=== PATIENT | female | born 1960 | race Asian ===

== ENCOUNTER 2018-07-24 14:55 | Emergency (ER) | payer OTHER ==
[2018-07-24 15:37] VITALS: BP 145/87
--- NOTE | 2018-07-24 15:43 | UC ---
Back Pain HPI - HPI Summary HPI Summary: 58-year-old female presents with left upper back pain that began when she attempted to lift a heavy box of fluids at work this afternoon. Describes pain as constant throbbing. Radiates to her left chest wall and up into her left lower neck. Worsens with touch or movement. Denies chest pain, palpitations, dizziness, shortness of breath, weakness, numbness, or tingling in the extremities, or loss of bowel or bladder control. - History of Current Complaint Chief Complaint: UCBackPain Stated Complaint: BACK INJURY Time Seen by Provider: 07/24/18 15:27 Hx Obtained From: Patient, Family/Bag Printer ?: No Onset/Duration: Sudden Onset, Lasting Hours Timing: Constant Severity Currently: Mild Pain Intensity: 3 Back Pain: Is Discrete @ - Left thoracic back, Radiates To - Left chest wall and left lower neck Character: Throbbing Aggravating Factor(s): Movement, Other - touch Alleviating Factor(s): Nothing Associated Signs And Symptoms: Negative: Weakness, Numbness, Tingling, Bladder Incontinence, Bowel Incontinence - Allergies/Home Medications Allergies/Adverse Reactions: Allergies Allergy/AdvReac Type Severity Reaction Status Date / Time dust mite Allergy Runny Nose Uncoded 07/24/18 15:37 PMH/Surg Hx/FS Hx/Imm Hx Previously Healthy: Yes GI/ History: Gastroesophageal Reflux Other History Of: Hepatitis B - Chronic - Surgical History Surgical History: Yes Surgery Procedure, Year, and Place: CERVICAL BIOPSY - Family History Family History: NON CONTRIBUTORY - Social History Occupation: Employed Full-time Lives: With Family Alcohol Use: None Substance Use Type: None Smoking Status (MU): Never Smoked Tobacco Review of Systems Constitutional: Negative Skin: Negative Respiratory: Negative Cardiovascular: Negative Gastrointestinal: Negative Motor: Negative Neurovascular: Negative Musculoskeletal: Other: - See HPI Is Patient Immunocompromised?: No All Other Systems Reviewed And Are Negative: Yes Physical Exam Triage Information Reviewed: Yes Appearance: Well-Appearing, No Pain Distress, Well-Nourished Vital Signs: Initial Vital Signs Temp 97.9 F 07/24/18 15:27 Pulse 98 07/24/18 15:27 Resp 16 07/24/18 15:27 BP 145/87 07/24/18 15:27 Pulse Ox 100 07/24/18 15:27 Neck: Positive: Supple, Nontender Respiratory: Positive: Lungs clear, Normal breath sounds Cardiovascular: Positive: RRR, No Murmur Abdomen Description: Positive: Nontender, No Organomegaly, Soft Musculoskeletal: Positive: Strength Intact, Other: - Mild soft tissue tenderness left thoracic back with palpation with spasm. No tenderness over the CTLS spinous processes. Limited flexion d/t pain. Neurological: Positive: Alert, Muscle Tone Normal, Other: - Sensation intact distally Skin Exam: Normal Diagnostics - Radiology No standard instances Xray Interpretation: No Acute Changes Radiology Interpretation Completed By: ED Physician, Radiologist - Order Information: THORACIC SPINE 2 VWS Accession Number: [id number] CPT: 36606 HISTORY: pain after lifting heavy box COMPARISONS: None VIEWS: 2, Frontal and lateral views of the thoracic spine. FINDINGS: ALIGNMENT: The alignment is normal. VERTEBRAL BODIES: The vertebral body heights are normal. The interpedicular distances are normal. JOINTS: Unremarkable. INTERVERTEBRAL DISCS : There is mild diffuse loss of intervertebral disc height. SOFT TISSUE: Unremarkable OTHER: The visualized lungs are clear. IMPRESSION: MILD DEGENERATIVE DISC DISEASE Back Pain Course/Dx - Course Course Of Treatment: 58 year old female with sudden onset of left upper thoracic back pain after attempting to lift a box at work. Exam revealed soft tissue tenderness. X-ray showed mild DDD otherwise no acute pathology. Recommend conservative treatment with NSAIDs and muscle relaxant. Warning symtoms reviewed with patient and spouse. Verbalize understanding. Agree with POC. - Differential Dx/Diagnosis Differential Diagnosis/HQI/PQRI: Herniated Disc, Strain Provider Diagnoses: acute back pain, elevated blood pressure reading Discharge - Sign-Out/Discharge Documenting (check all that apply): Patient Departure All imaging exams completed and their final reports reviewed: Yes - Discharge Plan Condition: Stable Disposition: HOME Prescriptions: Cyclobenzaprine (NF) [Cyclobenzaprine 5 MG (NF)] 5 mg PO TID PRN #15 tab PRN Reason: Spasms - Back Naproxen [Naproxen 250 mg tab] 250 mg PO Q12HR #30 tablet Patient Education Materials: Back Pain (ED) Forms: *Work Release Referrals: Fredy Trevino MD [Primary Care Provider] - 7 Days (If no improvement in symptoms.) Additional Instructions: The x-rays performed in the clinic today showed no evidence of a fracture. There was some mild degenerative disc disease but otherwise normal. Your pain is likely from a muscle strain. Take naproxen 1 tablet every 12 hours for the next 5-7 days. He should take this with food to avoid upset stomach. After 5-7 days you may take every 12 hours as needed for pain. I have also prescribed cyclobenzaprine (Flexeril) which is a muscle relaxant. You may take 1 tablet every 8 hours as needed for severe pain or spasm. Be aware that these will make you drowsy therefore he should not drive or operate machinery after taking them. Apply heating pad to the affected area for 15-20 minutes 3-4 times a day to help with the pain and relax the muscles. Your blood pressure was elevated in the clinic today. It is recommended that you follow up with your primary care provider within 4 weeks to have this rechecked. Follow up in 7 days if no improvement in symptoms. Seek immediate medical attention if you have worsening pain despite pain medication, chest pain, shortness of breath, weakness, numbness, or tingling in your legs, or if you lose control of your bowel or bladder. - Billing Disposition and Condition Condition: STABLE Disposition: Home
[2018-07-24] MEDS ORDERED: Naproxen TAB* 250 MG PO ONE (15:50)
--- NOTE | 2018-07-24 16:22 | RAD ---
HISTORY: pain after lifting heavy box COMPARISONS: None VIEWS: 2, Frontal and lateral views of the thoracic spine. FINDINGS: ALIGNMENT: The alignment is normal. VERTEBRAL BODIES: The vertebral body heights are normal. The interpedicular distances are normal. JOINTS: Unremarkable. INTERVERTEBRAL DISCS: There is mild diffuse loss of intervertebral disc height. SOFT TISSUE: Unremarkable OTHER: The visualized lungs are clear. IMPRESSION: MILD DEGENERATIVE DISC DISEASE
== END 2018-07-24 16:51 | disposition home or self-care (01) ==
LOC: UCEAST 14:55
DX: M54.6 Pain in thoracic spine (principal); R03.0 Elevated blood-pressure reading, without diagnosis of hypertension
CPT/HCPCS: 72070; 99212; A9270-GY; G0463